=== PATIENT | female | born 1975 | race Caucasian/White ===

== ENCOUNTER 2023-11-16 20:21 | Emergency (ER) | payer OTHER ==
[~2023-11-16] VITALS: Ht 165.1 cm; Wt 77.0 kg
[2023-11-16 20:36] VITALS: O2SAT 100
[2023-11-16] MEDS: IBUPROFEN 600MG TABLET PO ONE (21:01)
[2023-11-16] MEDS: LIDOCAINE 5% PATCH TOP ONE (21:01)
[2023-11-16] MEDS: CYCLOBENZAPRINE 10MG TABLET PO ONE (21:55)
[2023-11-16 22:36] LABS: CLARITY URINE CLEAR (CLEAR); COLOR URINE YELLOW (YELLOW); GLUCOSE URINE 2+ (NEGATIVE); KETONES URINE NEGATIVE (NEGATIVE); LEUKOCYTE ESTERASE URINE NEGATIVE (NEGATIVE); NITRITE URINE NEGATIVE (NEGATIVE); OCCULT BLOOD URINE NEGATIVE (NEGATIVE); PH URINE 5.5 (4.5-8.0); PROTEIN URINE NEGATIVE (NEGATIVE); SPECIFIC GRAVITY URINE 1.022 (1.005-1.030); UROBILINOGEN URINE 0.2 E.U./dL (0.2-1.0)
[2023-11-16] MEDS ORDERED: CYCL10TA21 MT (22:43)
[2023-11-16 22:48] LABS: BACTERIA URINE TRACE; RBC URINE NONE SEEN /hpf (0-2); SQUAMOUS EPITHELIAL CELL URINE NONE SEEN /lpf (RARE/1+); WBC URINE NONE SEEN /hpf (0-2)
[2023-11-16 22:49] LABS: URIC ACID CRYSTALS URINE 3+ /lpf
[2023-11-16 22:55] VITALS: BP 130/45; PULSE 68; RESP 17; TEMP 36.66960; O2SAT 99
== END 2023-11-16 23:11 | disposition home or self-care (01) ==
LOC: ER 20:21 → EDBD 20:21 → ER 23:11
DX: S39.012A Strain of muscle, fascia and tendon of lower back, initial encounter (principal); X58.XXXA Exposure to other specified factors, initial encounter; Y93.89 Activity, other specified; Y92.89 Other specified places as the place of occurrence of the external cause; Y99.8 Other external cause status
CPT/HCPCS: 81003; 81025; 99284